=== PATIENT | male | born 1995 | race Caucasian/White ===

== ENCOUNTER → 2017-05-28 | Outpatient (CLI) | payer OTHER ==
--- NOTE | 2017-05-28 13:45 | DIAGNOSTIC IMAGING REPORT ---
RIGHT FIFTH FINGER 3 VIEWS HISTORY: Right fifth finger pain. COMPARISON: None. FINDINGS: There is no fracture or dislocation. Mild soft tissue swelling at the PIP joint. No radiopaque foreign bodies. IMPRESSION: No fractures. Electronically signed by: Nj Alexander M.D. 05/28/2017 1:44 PM Dictated Date/Time: 05/28/2017 1:43 PM
== END | disposition home or self-care (01) ==
LOC: C.RAD 13:01
PROVIDERS: ATTEND Physician Assistant Medical
DX: M79.644 Pain in right finger(s) (principal)